=== PATIENT | male | born 1925 | race Caucasian/White ===

== ENCOUNTER → 2016-12-04 | Outpatient (CLI) | payer MEDICARE ==
[2016-12-04 10:56] LABS: Basophils # (A) 0.1 k/uL (0-0.2); Basophils % (A) 1 %; CHCM 31.9; Eosinophils # (A) 0.4 k/uL (0-0.7); Eosinophils % (A) 6 %; HCT 42.7 % (39.0-53.0); HDW 2.59; HGB 13.4 gm/dL (13.0-17.5); Luc # (Auto) 0.28; Luc % (Auto) 4; Lymphocytes # (A) 2.1 k/uL (1.0-4.8); Lymphocytes % (A) 29 %; MCH 29.5 pg (25.0-35.0); MCHC 31.3 g/dL (31.0-37.0); MCV 94.3 fL (80.0-100.0); Mean Platelet Volume 8.8; Monocytes # (A) 0.5 k/uL (0-1.0); Monocytes % (A) 8 %; Neutrophils # (A) 3.7 k/uL (1.3-7.7); Neutrophils % (A) 53 %; RBC 4.52 m/uL (4.30-5.90); RDW 14.2 % (11.5-15.5); WBC 7.1 k/uL (3.8-10.6); WBC (Perox) 7.48
[2016-12-04 11:24] LABS: Uric Acid 5.2 mg/dL (3.5-8.5)
[2016-12-04 11:28] LABS: Rheumatoid Factor, Qnt <9 IU/mL (<12)
[2016-12-04 13:47] LABS: Erythrocyte Sedimentation Rate 8 mm/hr (0-15)
== END | disposition home or self-care (01) ==
LOC: LABWHC1 10:21
PROVIDERS: ATTEND Podiatrist Foot & Ankle Surgery
DX: M10.9 Gout, unspecified (principal); L08.9 Local infection of the skin and subcutaneous tissue, unspecified
CPT/HCPCS: 36415; 84550; 85025; 85652; 86431

== ENCOUNTER 2017-01-20 16:37 | Emergency (ER) | payer MEDICARE ==
--- NOTE | 2017-01-20 17:32 | ED ---
General Adult HPI - General Chief complaint: Fall Stated complaint: Fall Time Seen by Provider: 01/20/17 16:42 Source: patient, EMS, RN notes reviewed, old records reviewed Mode of arrival: EMS Limitations: no limitations - History of Present Illness Initial comments: This is an 89-year-old male here status post fall. Status post typical nonblood tenderness did land on his head. Patient states he did not use either of his arms to catch his fall braces. He did trip fall [place] (states hitting cement. Patient complaining of facial pain of consciousness. No other injuries. was witnessed the fall was here in the hospital, states patient has been acting appropriate since fall. Again agrees with no blood thinners and that follow-up mechanical in nature - Related Data Home Medications Medication Instructions Recorded Confirmed Aspirin 81 mg PO DAILY 02/18/15 01/20/17 Atorvastatin [Lipitor] 40 mg PO DAILY 02/18/15 01/20/17 Baclofen [Lioresal] 10 mg PO HS PRN 02/18/15 01/20/17 Famotidine [Pepcid] 20 mg PO HS 02/18/15 01/20/17 Finasteride [Proscar] 2.5 mg PO HS 02/18/15 01/20/17 Montelukast [Singulair] 10 mg PO HS 02/18/15 01/20/17 Tamsulosin [Flomax] 0.4 mg PO HS 02/18/15 01/20/17 DULoxetine HCL [Cymbalta] 30 mg PO DAILY 09/16/16 01/20/17 Meloxicam [Mobic] 7.5 mg PO BID 09/16/16 01/20/17 Donepezil [Aricept] 10 mg PO HS 01/20/17 01/20/17 Gabapentin [Neurontin] 200 mg PO BID 01/20/17 01/20/17 Isosorbide Mononitrate ER [Imdur] 15 mg PO DAILY 01/20/17 01/20/17 NIFEdipine [NIFEdipine ER] 60 mg PO DAILY 01/20/17 01/20/17 Previous Rx's Medication Instructions Recorded Nitroglycerin Sl Tabs [Nitrostat] 0.4 mg SUBLINGUAL Q5M PRN #25 tab 09/17/16 Allergies Allergy/AdvReac Type Severity Reaction Status Date / Time No Known Allergies Allergy Verified 01/20/17 17:00 Review of Systems ROS Statement: Those systems with pertinent positive or pertinent negative responses have been documented in the HPI. ROS Other: All systems not noted in ROS Statement are negative. Past Medical History Past Medical History: Dementia, Hyperlipidemia, Hypertension, Myocardial Infarction ([place]) Additional Past Medical History / Comment(s): Benign prostatic hypertrophy, chronic back pain Last Myocardial Infarction Date:: UNSURE History of Any Multi-Drug Resistant Organisms: None Reported Past Surgical History: Appendectomy, Heart Catheterization With Stent, Joint Replacement, Orthopedic Surgery, Tonsillectomy Past Anesthesia/Blood Transfusion Reactions: No Reported Reaction Date of Last Stent Placement:: UNSURE Past Psychological History: No Psychological Hx Reported Smoking Status: Former smoker Past Alcohol Use History: None Reported Additional Past Alcohol Use History / Comment(s): 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 He states he does not drink any alcohol at this time. He lives at home with his . Past Drug Use History: None Reported - Past Family History Mother History Unknown: Yes Additional Family Medical History / Comment(s): MOTHER AND FATHER WHEN HE WAS 4 YRS OLD General Exam Limitations: no limitations General appearance: alert, in no apparent distress Head exam: Absent: atraumatic (Large hematoma to left eye and surrounding left- sided face) Eye exam: Present: normal appearance, PERRL, EOMI. Absent: scleral icterus, conjunctival injection, periorbital swelling ENT exam: Present: normal exam, mucous membranes moist Neck exam: Present: normal inspection. Absent: tenderness, meningismus, lymphadenopathy Respiratory exam: Present: normal lung sounds bilaterally. Absent: respiratory distress, wheezes, rales, rhonchi, stridor Cardiovascular Exam: Present: regular rate, normal rhythm, normal heart sounds. Absent: systolic murmur, diastolic murmur, rubs, gallop, clicks GI/Abdominal exam: Present: soft, normal bowel sounds. Absent: distended, tenderness, guarding, rebound, rigid Extremities exam: Present: normal inspection, full ROM, normal capillary refill. Absent: tenderness, pedal edema, joint swelling, calf tenderness Back exam: Present: normal inspection Neurological exam: Present: alert, oriented X3, CN II-XII intact Psychiatric exam: Present: normal affect, normal mood Skin exam: Present: warm, dry, intact, normal color. Absent: rash Course Vital Signs 01/20/17 16:38 Temperature 98.5 F Pulse Rate 62 Respiratory 18 Rate Blood Pressure 173/78 O2 Sat by Pulse 95 Oximetry - Reevaluation(s) Reevaluation #1: 01/20/17 18:15 Is awake alert, pain is controlled Medical Decision Making - Medical Decision Making 89 Male status post mechanical fall slip and fall, patient with severe contusion and hematoma to left orbit. No fracture noted on CT, no blood thinners, patient can be discharged home - Radiology Data Radiology results: report reviewed (CT brain C-spine and facial bones is negative for traumatic injury), image reviewed Disposition Clinical Impression: Fall, Edema of left eyelid Disposition: HOME SELF-CARE Condition: Good Instructions: Fall Prevention for Older Adults (ED), Hematoma (ED) Referrals: Paddy Zapata MD [Primary Care Provider] - 1-2 days
--- NOTE | 2017-01-20 18:03 | CT ---
EXAMINATION TYPE: CT brain cspine wo con DATE OF EXAM: 01/20/2017 5:35 PM COMPARISON: 02/18/2015 HISTORY: Fall injury today. Hematoma to left orbital area. CT DLP: 2296 mGycm Automated exposure control for dose reduction was used. TECHNIQUE: CT scan of the head and cervical spine are performed without contrast. FINDINGS: There is no acute intracranial hemorrhage, mass effect, or midline shift identified. The ventricles and sulci are within normal limits in size. The globes are intact and the visualized sin uses are clear. Cervical spine is visualized in its entirety from C1 through upper thoracic levels and demonstrates s atisfactory alignment without evidence of acute fracture or dislocation. Prevertebral soft tissue ap pears within normal limits. The C1-C2 articulation is unremarkable. IMPRESSION: 1. There is no acute fracture or dislocation evident in the cervical spine. 2. No acute intracranial hemorrhage, mass effect, or midline shift is seen.
--- NOTE | 2017-01-20 18:08 | CT ---
EXAMINATION TYPE: CT facial bones wo con DATE OF EXAM: 01/20/2017 5:35 PM COMPARISON: 02/18/2015 HISTORY: Fall injury today. Hematoma to left orbital area. CT DLP: 2296 mGycm Automated exposure control for dose reduction was used. TECHNIQUE: CT scan of the sinuses is performed without contrast, axial images are obtained, coronal r eformatted images are also reviewed. FINDINGS: Evaluation of the facial skeleton is negative for fracture or malalignment. Evaluation of the left orbit shows prominent soft tissue swelling in the preseptal position over the left ORBIT. The postseptal anatomy has normal appearance. The globes appear intact. Extraocular muscu lature unremarkable. Temporomandibular joints are congruent. The paranasal sinuses including the frontal, ethmoid, sphenoid, and maxillary sinuses bilaterally ar e well-aerated without abnormal opacification. The ostiomeatal complex is patent bilaterally on the coronal images. Visualized portion of mastoid air cells show no abnormal opacification. IMPRESSION: PROMINENT SOFT TISSUE SWELLING OVER THE LEFT ORBIT.
[2017-01-20 18:27] VITALS: BP 162/89; PULSE 73; RESP 20; TEMP 98.2
== END 2017-01-20 18:27 | disposition home or self-care (01) ==
LOC: EC 16:37
DX: H02.846 Edema of left eye, unspecified eyelid (principal); R51 Headache; E78.5 Hyperlipidemia, unspecified; I10 Essential (primary) hypertension; F03.90 Unspecified dementia, unspecified severity, without behavioral disturbance, psychotic disturbance, mood disturbance, and anxiety; N40.0 Benign prostatic hyperplasia without lower urinary tract symptoms; Z87.891 Personal history of nicotine dependence; Z79.82 Long term (current) use of aspirin; Z79.899 Other long term (current) drug therapy; W01.198A Fall on same level from slipping, tripping and stumbling with subsequent striking against other object, initial encounter
CPT/HCPCS: 70450; 70486; 72125; 99285